=== PATIENT | female | born 1950 | race Asian ===

== ENCOUNTER 2021-05-21 12:00 | Emergency (ER) | payer MEDICARE ==
[~2021-05-21] VITALS: Ht 154.9 cm; Wt 46.8 kg
[2021-05-21] MEDS ORDERED: MORPHINE SULFATE 2 MG/ML SYRINGE IVP ONE (12:30)
[2021-05-21] MEDS ORDERED: LORazepam 2 MG/ML VIAL IVP ONE (12:30)
[2021-05-21 13:18] VITALS: BP 137/86
== END 2021-05-21 14:15 | disposition home or self-care (01) ==
LOC: EMS 12:00
DX: S20.219A Contusion of unspecified front wall of thorax, initial encounter (principal); V49.49XA Driver injured in collision with other motor vehicles in traffic accident, initial encounter; Y93.89 Activity, other specified; Y92.89 Other specified places as the place of occurrence of the external cause; Y99.8 Other external cause status
CPT/HCPCS: 71045; 93005; 96374; 96375; 99284; J2060; J2270